=== PATIENT | male | born 2000 | race African-American/Black ===

== ENCOUNTER 2021-04-03 16:27 | Emergency (ER) | payer MEDICAID ==
[~2021-04-03] VITALS: Ht 170.2 cm; Wt 84.1 kg
[2021-04-03] MEDS ORDERED: IBUPROFEN 800 MG TABLET PO ONE (18:30)
[2021-04-03 19:50] LABS: COVID AG,FIA SOURCE NASOPHARYNGEAL
[2021-04-03 21:43] VITALS: BP 125/70
== END 2021-04-03 22:00 | disposition home or self-care (01) ==
LOC: EMS 16:29
DX: U07.1 COVID-19 (principal); M54.50 Low back pain, unspecified
CPT/HCPCS: 87426; 99285; U0003; Z7502; Z7610